=== PATIENT | female | born 1990 | race African-American/Black ===

== ENCOUNTER 2016-10-21 13:12 | Emergency (ER) | payer MEDICAID ==
[~2016-10-21] VITALS: Ht 170.2 cm; Wt 104.3 kg
[~2016-10-21 13:12] MED LIST: CYCLOBENZAPRINE10 MG ORAL; IBUPROFEN600 MG ORAL; KEFLEX500 MG ORAL; NITROFURANTOIN100 M2 ORAL
[2016-10-21 13:27] VITALS: BP 95/73
[2016-10-21 15:00] VITALS: BP 105/79
[2016-10-21 15:12] LABS: KETONES,URINE NEGATIVE (NEGATIVE); LEUKOCYTE ESTERASE ,URINE NEGATIVE (NEGATIVE); NITRITE,URINE NEGATIVE (NEGATIVE); PH,URINE 8 (4.5-8.0); PROTEIN,URINE NEGATIVE (NEGATIVE); UROBILINOGEN,URINE NORMAL MG/DL (0.0-1.0)
[2016-10-21 15:20] VITALS: BP 105/79
[2016-10-21 15:22] LABS: APPEARANCE,URINE CLEAR
--- NOTE | 2016-10-21 16:41 | Diagnostic Imaging Report ---
Indication: 11 weeks , vaginal bleeding, cramping Technique: Transabdominal and transvaginal images Comparison: 04/15/2016 Findings: Uterus is anteverted and retroflexed, measures 10.9 cm length by 7 cm AP. Within the endometrium, there is a gestational sac containing a pole with a crown-rump length of 13 mm, corresponding to a gestational age of 10 weeks. Estimated date of delivery is 05/18/2017. Note that estimated gestational age by dates is 14 weeks 6 days there is positive heart activity, heart rate 153 beats per minute. No myometrial abnormalities. No evidence of subchorionic hemorrhage. Yolk sac is demonstrated. Right ovary measures 2.4 cm in length. Right ovary measures 3.1 cm. Complex corpus luteum seen within the right ovary. No adnexal mass demonstrated. There is trace free cul-de-sac fluid. Impression: Positive for 10 week single live intrauterine , by crown-rump length measurement. No unusual features Trace free cul-de-sac fluid, most likely physiologic
--- NOTE | 2016-10-23 08:16 | Emergency Room Report ---
History of Present Illness General Chief Complaint: Abdominal Pain Source: Patient Present Illness HPI Patient presents with complaints of vaginal spotting she feels that she is likely 10-11 weeks Has some mild cramping in the lower abdomen as well Denies any dysuria frequency Patient denies any flank pain Denies any vomiting or diarrhea Cramping is 2/10 suprapubic region Patient has not had ultrasound the workup for this Allergies: Coded Allergies: No Known Allergies (Unverified , 04/08/15) Patient History Past Medical History: see triage record Pertinent Family History: none Last Menstrual Period: 06/25/16 Now: Yes : 3 Para: 1 Reviewed Nursing Documentation: PMH: Agreed, PSxH: Agreed Nursing Documentation-PMH Past Medical History: No Stated History Review of Systems All Other Systems: negative except mentioned in HPI Physical Exam Vital Signs Date Time Temp Pulse Resp B/P Pulse Ox O2 Delivery O2 Flow Rate FiO2 10/21/16 13:17 98.2 80 15 95/73 96 Room Air Sp02 EP Interpretation: reviewed, normal General Appearance: well appearing, no apparent distress Head: normocephalic, atraumatic Eyes: bilateral eye EOMI, bilateral eye PERRL ENT: hearing grossly normal, normal pharynx, TMs + canals normal, uvula midline Neck: full range of motion, supple, no meningismus, no bony tend Respiratory: lungs clear, normal breath sounds, no rhonchi, no respiratory distress, no retraction, no accessory muscle use Cardiovascular #1: normal peripheral pulses, regular rate, rhythm, no edema, no gallop, no JVD, no murmur Gastrointestinal: normal bowel sounds, non tender, soft, no mass, no organomegaly, non-distended, no guarding, no hernia, no pulsatile mass, no rebound Genitourinary: no CVA tenderness Musculoskeletal: normal inspection Neurologic: oriented x3, responsive, manager of allied health services III-XII nml as tested, motor strength/ tone normal, sensory intact Psychiatric: mood/affect normal Skin: normal color, no rash, warm/dry, palpation normal Lymphatic: normal inspection, no adenopathy Medical Decision Making Diagnostic Impression: Primary Impression: threatened miscarriage ER Course Multiple differentials considered, including but not limited to ectopic , threatened miscarriage, UTI Patient's beta Quant is elevated ultrasound reveals evidence of intrauterine And patient stable for close outpatient followup Labs Test 10/21/16 14:40 Urine Color Pale yellow Urine Appearance Clear Urine pH 8 (4.5-8.0) Urine Specific [place] 1.010 (1.005-1.035) Urine Protein Negative (NEGATIVE) Urine Glucose (UA) Negative (NEGATIVE) Urine Ketones Negative (NEGATIVE) Urine Occult Blood Negative (NEGATIVE) Urine Nitrite Negative (NEGATIVE) Urine Bilirubin Negative (NEGATIVE) Urine Urobilinogen Normal MG/DL (0.0-1.0) Urine Leukocyte Esterase Negative (NEGATIVE) Human Chorionic Gonadotropin, Quant 40607 mIU/mL CT/MRI/US Diagnostic Results CT/MRI/US Diagnostic Results : Impression Pelvic ultrasound:Impression: Positive for 10 week single live intrauterine , by crown-rump length measurement. No unusual features Trace free cul-de-sac fluid, most likely physiologic Last Vital Signs Date Time Temp Pulse Resp B/P Pulse Ox O2 Delivery O2 Flow Rate FiO2 10/21/16 15:20 98.2 76 16 105/79 98 Room Air Status: improved Disposition: HOME, SELF-CARE Condition: Improved Referrals: [facility] (PCP) Patient Instructions: Threatened Miscarriage, [id number] Additional Instructions: Patient is provided with the discharge instructions notified to follow up with primary doctor in the next 2-3 days otherwise return to the er with any worsening symptoms. Please note that this report is being documented using [employer] technology. This can lead to erroneous entry secondary to incorrect interpretation by the dictating instrument. JESSE LOPEZ D.O. Oct 23, 2016 08:16
== END 2016-10-21 15:20 | disposition home or self-care (01) ==
LOC: EMR 13:45
DX: O20.0 Threatened abortion (principal); Z3A.10 10 weeks gestation of pregnancy
CPT/HCPCS: 36415; 76801; 76830; 81003; 84702; 99284

== ENCOUNTER 2017-01-10 13:05 | Emergency (ER) | payer MEDICAID ==
[~2017-01-10] VITALS: Ht 170.2 cm; Wt 106.1 kg
[2017-01-10 13:41] VITALS: BP 103/73
[2017-01-10 14:04] LABS: BASOPHILS % (AUTO) 0.2 % (0.0-2.0); EOSINOPHILS % (AUTO) 0.5 % (0.0-3.0); LYMPHOCYTES % (AUTO) 22.1 % (20.0-45.0); MEAN CORPUSCULAR HEMOGLOBIN 30.3 PG (27.0-31.0); MEAN CORPUSCULAR HGB CONC 33.6 G/DL (32.0-36.0); MEAN CORPUSCULAR VOLUME 90 FL (80-99); MEAN PLATELET VOLUME 6.8 FL (6.5-10.1); MONOCYTES % (AUTO) 5.9 % (1.0-10.0); NEUTROPHILS % (AUTO) 71.3 % (45.0-75.0); PLATELET COUNT 258 K/UL (150-450); RED BLOOD COUNT 4.02 M/UL (4.20-5.40); RED CELL DISTRIBUTION WIDTH 12.1 % (11.6-14.8); WHITE BLOOD COUNT 8.9 K/UL (4.8-10.8)
[2017-01-10 14:13] LABS: APPEARANCE,URINE CLEAR; KETONES,URINE NEGATIVE (NEGATIVE); LEUKOCYTE ESTERASE ,URINE 1+ (NEGATIVE); NITRITE,URINE NEGATIVE (NEGATIVE); PH,URINE 6 (4.5-8.0); PROTEIN,URINE NEGATIVE (NEGATIVE); UROBILINOGEN,URINE NORMAL MG/DL (0.0-1.0)
[2017-01-10 14:31] LABS: BACTERIA,URINE FEW /HPF; MUCUS,URINE FEW /LPF (NONE/OCC); RBC,URINE 0-2 /HPF (0 - 2); SQUAMOUS EPITHELIAL CELL,UR FEW /LPF (NONE/OCC)
[2017-01-10 14:37] LABS: ALANINE AMINOTRANSFERASE 18 U/L (3-33); ALBUMIN/GLOBULIN RATIO 1.3 (1.0-2.7); ANION GAP 13 (5-15); ASPARTATE AMINO TRANSFERASE 14 U/L (5-40); CALCIUM 9.2 mg/dL (8.6-10.2); CARBON DIOXIDE 21 mEQ/L (20-30); CHLORIDE 103 mEQ/L (98-107); CREATININE 0.6 mg/dL (0.5-0.9); GLOMERULAR FILTRATION RATE > 60 mL/min (>60); HEMOLYSIS 3; LIPASE 19 U/L (< 60); POTASSIUM 3.6 mEQ/L (3.4-4.9); SODIUM 137 mEQ/L (135-145); TOTAL PROTEIN 6.5 g/dL (6.6-8.7)
[2017-01-10 15:30] VITALS: BP 103/73
--- NOTE | 2017-01-10 21:55 | Emergency Room Report ---
History of Present Illness General Chief Complaint: Syncope Source: Patient Present Illness HPI The patient is a 26-year-old female at 22 weeks gestation presenting for feelings of weakness for the past 2 weeks. She is unsure if she has fainted. She denies any abdominal pain or vaginal bleeding. She denies headache or dizziness. She denies other symptoms including nausea, vomiting, fever, chills , shortness of breath, chest pain Allergies: Coded Allergies: No Known Allergies (Unverified , 04/08/15) Patient History Past Medical History: see triage record Pertinent Family History: none Last Menstrual Period: 08/08/16 Now: Yes : 3 Para: 2 Reviewed Nursing Documentation: PMH: Agreed, PSxH: Agreed Nursing Documentation-PMH Past Medical History: No Stated History Review of Systems All Other Systems: negative except mentioned in HPI Physical Exam Vital Signs Date Time Temp Pulse Resp B/P Pulse Ox O2 Delivery O2 Flow Rate FiO2 01/10/17 13:09 97.9 90 17 103/73 98 Room Air Sp02 EP Interpretation: reviewed, normal General Appearance: no apparent distress, alert, GCS 15, non-toxic Head: normocephalic, atraumatic Eyes: bilateral eye PERRL, bilateral eye normal inspection ENT: hearing grossly normal, normal pharynx, no angioedema, normal voice Neck: full range of motion, supple/symm/no masses Respiratory: chest non-tender, lungs clear, normal breath sounds, speaking full sentences Cardiovascular #1: regular rate, rhythm, no edema Musculoskeletal: back normal, gait/station normal, normal range of motion, non- tender Neurologic: alert, oriented x3, responsive, motor strength/tone normal, sensory intact, speech normal Psychiatric: judgement/insight normal, memory normal, mood/affect normal, no suicidal/homicidal ideation Skin: normal color, no rash, warm/dry, well hydrated Medical Decision Making PA Attestation Dr. Pardo is my supervising physician. Patient management was discussed with my supervising physician Diagnostic Impression: Primary Impression: Second trimester ER Course The patient is a 26-year-old female a 22 weeks gestation presenting for weakness Differential diagnoses considered include but not limited to anemia, dehydration , hyperemesis gravidarum, ectopic , threatened , among others Physical exam: Vitals are within normal limits. No apparent distress Abdomen is soft and nontender Skin is warm and dry. No pallor Blood work is unremarkable Mobile to sound is unremarkable. Viable noted The patient will be discharged home he needs to followup with OB as soon as possible. ER precautions given Laboratory Tests Test 01/10/17 13:35 White Blood Count 8.9 K/UL (4.8-10.8) Red Blood Count 4.02 M/UL (4.20-5.40) L Hemoglobin 12.2 G/DL (12.0-16.0) Hematocrit 36.3 % (37.0-47.0) L Mean Corpuscular Volume 90 FL (80-99) Mean Corpuscular Hemoglobin 30.3 PG (27.0-31.0) Mean Corpuscular Hemoglobin Concent 33.6 G/DL (32.0-36.0) Red Cell Distribution Width 12.1 % (11.6-14.8) Platelet Count 258 K/UL (150-450) Mean Platelet Volume 6.8 FL (6.5-10.1) Neutrophils (%) (Auto) 71.3 % (45.0-75.0) Lymphocytes (%) (Auto) 22.1 % (20.0-45.0) Monocytes (%) (Auto) 5.9 % (1.0-10.0) Eosinophils (%) (Auto) 0.5 % (0.0-3.0) Basophils (%) (Auto) 0.2 % (0.0-2.0) Prothrombin Time 10.0 SEC (9.30-11.50) Prothrombin Time INR 1.0 (0.9-1.1) PTT 28 SEC (23-33) Urine Color Yellow Urine Appearance Clear Urine pH 6 (4.5-8.0) Urine Specific [place] 1.025 (1.005-1.035) Urine Protein Negative (NEGATIVE) Urine Glucose (UA) Negative (NEGATIVE) Urine Ketones Negative (NEGATIVE) Urine Occult Blood Negative (NEGATIVE) Urine Nitrite Negative (NEGATIVE) Urine Bilirubin Negative (NEGATIVE) Urine Urobilinogen Normal MG/DL (0.0-1.0) Urine Leukocyte Esterase 1+ (NEGATIVE) H Urine RBC 0-2 /HPF (0 - 2) Urine WBC 2-4 /HPF (0 - 2) Urine Squamous Epithelial Cells Few /LPF (NONE/OCC) Urine Bacteria Few /HPF (NONE) Urine Mucus Few /LPF (NONE/OCC) H Sodium Level 137 mEQ/L (135-145) Potassium Level 3.6 mEQ/L (3.4-4.9) Chloride Level 103 mEQ/L (98-107) Carbon Dioxide Level 21 mEQ/L (20-30) Anion Gap 13 (5-15) Blood Urea Nitrogen 6 mg/dL (7-23) L Creatinine 0.6 mg/dL (0.5-0.9) Estimate Glomerular Filtration Rate > 60 mL/min (>60) Glucose Level 112 mg/dL (74-106) H Calcium Level 9.2 mg/dL (8.6-10.2) Total Bilirubin < 0.2 mg/dL (0.0-1.2) Aspartate Amino Transferase (AST) 14 U/L (5-40) Alanine Aminotransferase (ALT) 18 U/L (3-33) Alkaline Phosphatase 59 U/L (35-104) Total Protein 6.5 g/dL (6.6-8.7) L Albumin 3.7 g/dL (3.5-5.2) Globulin 2.8 g/dL Albumin/Globulin Ratio 1.3 (1.0-2.7) Lipase 19 U/L (< 60) Human Chorionic Gonadotropin, Quant 8267 mIU/mL Lab Results Impression Unremarkable EKG Diagnostic Results EP Interpretation: NSR, no acute findings Rate: normal - 74 Rhythm: NSR ST Segments: no acute changes ASA given to the pt in ED: No PA Scribe Text EKG was reviewed and read with my supervising physician. No acute ST segment changes are seen. Normal rate and rhythm. No acute changes. CT/MRI/US Diagnostic Results CT/MRI/US Diagnostic Results : Imaging Test Ordered: OB US Impression viable Last Vital Signs Date Time Temp Pulse Resp B/P Pulse Ox O2 Delivery O2 Flow Rate FiO2 01/10/17 15:30 97.9 90 17 103/73 98 Room Air Status: improved Disposition: HOME, SELF-CARE Condition: Improved Patient Instructions: Second Trimester of Additional Instructions: I discussed my findings with the patient. All questions and concerns have been answered. Treatment and medication compliance have been addressed. I advised the patient that they need to follow up with OB as soon as possible. Return to ED if symptoms worsen, new symptoms arise such as vaginal bleeding or cramping, or if needed for any reason. Patient verbalized understanding of discharge instructions. NATANAEL RODRIGUEZ Jan 10, 2017 21:55
--- NOTE | 2017-01-11 09:12 | Diagnostic Imaging Report ---
Indications: 26-year-old female with pain. Technique: Transabdominal real-time grayscale and duplex Doppler imaging of intrauterine was performed. Findings: Comparison: None. Single live intrauterine fetus is present, cephalic in presentation with spontaneous movement and regular cardiac activity are demonstrated, 152 beats per minute. Cervix is closed measuring 4.2 cm. Amniotic fluid appears grossly within normal limits. There is a posterior placenta with relationship to the cervix difficult to visualize without endovaginal technique questionably marginal. Evaluation of the anatomy is limited. Bladder, three-vessel cord, cord insertion are grossly unremarkable. Face, intracranial compartment, four-chamber heart, distal extremities and spine are suboptimally evaluated. Mean biparietal diameter 5.2 cm corresponding to 21 weeks 5 days. Mean head circumference 18.8 cm corresponding to 21 weeks one day. Mean abdominal circumference 16.9 cm corresponding to 21 weeks 6 days. Mean femur length 3.6 cm corresponding to 21 weeks 3 days. Estimated weight is 436 grams. Composite estimated gestational age by sonographic measurements is 21 weeks 4 days. This compares to an estimated gestational age of 21 weeks 5 days by LMP. Impression: Single live intrauterine , estimated gestational age 21 weeks 4 days by ultrasound versus 21 weeks 5 days by LMP. heart rate of 152 beats per minute. Limited evaluation of the anatomy and dedicated anatomy scan recommended for further evaluation. Suboptimal visualization of the distal extent of the posterior placenta without endovaginal technique. Questionable marginal placenta and followup recommended for further evaluation.
--- NOTE | 2017-01-11 16:59 | Cardiology Report ---
APPROVED REPORT EKG Measurement Heart [id number] Normal sinus rhythm Normal ECG
== END 2017-01-10 15:30 | disposition home or self-care (01) ==
LOC: EMR 14:05
DX: O26.892 Other specified pregnancy related conditions, second trimester (principal); Z3A.22 22 weeks gestation of pregnancy; R53.1 Weakness
CPT/HCPCS: 36415; 76805; 80053; 81003; 83690; 84702; 85025; 85610; 85730; 86850; 86900; 86901; 93005; 99284

== ENCOUNTER 2017-09-06 09:45 | Emergency (ER) | payer MEDICAID ==
[~2017-09-06] VITALS: Ht 170.2 cm; Wt 108.0 kg
[2017-09-06] MEDS ORDERED: NKM (10:00)
[2017-09-06] MEDS ORDERED: Azithromycin 250mg tab ORAL ONE (10:30)
[2017-09-06] MEDS ORDERED: Dexamethasone 4mg/ml vial IM ONE (10:30)
--- NOTE | 2017-09-06 11:16 | Emergency Room Report ---
History of Present Illness General Chief Complaint: Sore Throat Source: Patient Present Illness HPI Patient with 2-3 days of increased sore throat. Pain with swallowing. Her tonsils feel swollen. She has no trouble breathing. Feverish, not documented. Never with this amount of pain with sore throats in the past. No productive cough or chest pain. Not feel dizzy with standing. Some change in her voice, but no jaw pain or problems opening her mouth. Pain rated 7/10, burning. Feels some swelling both sides. Her periods are irregular. She states she is not . No dysuria. She has the implant and this makes her periods irregular. No abdominal pain, nausea. Feels tired. No rashes or joint pain. No neck stiffness. Allergies: Coded Allergies: No Known Allergies (Unverified , 04/08/15) Patient History Past Medical History: see triage record Social History: Denies: smoking Social History Narrative working Last Menstrual Period: 07/25/17 : 3 Para: 2 Reviewed Nursing Documentation: PMH: Agreed; PSxH: Agreed Nursing Documentation-PMH Past Medical History: No Stated History Review of Systems All Other Systems: negative except mentioned in HPI Physical Exam Vital Signs Date Time Temp Pulse Resp B/P (MAP) Pulse Ox O2 Delivery O2 Flow Rate FiO2 09/06/17 09:56 99.3 97 17 125/81 97 Room Air 99.3 Sp02 EP Interpretation: reviewed, normal General Appearance: well appearing, no apparent distress, GCS 15, non-toxic Head: normocephalic, atraumatic ENT: hearing grossly normal, no angioedema, normal voice, uvula midline, moist mucus membranes, tonsillar swelling, pharyngeal erythema, tonsillar exudate, other - No ACETALDEHYDE CONVERTER OPERATOR Neck: full range of motion, supple, no meningismus Respiratory: chest non-tender, lungs clear, normal breath sounds, no respiratory distress, speaking full sentences Cardiovascular #1: regular rate, rhythm Cardiovascular #2: 2+ radial (R) Gastrointestinal: normal inspection Musculoskeletal: no calf tenderness Neurologic: alert, normal gait, grossly normal Psychiatric: mood/affect normal Skin: no rash Medical Decision Making Diagnostic Impression: Primary Impression: Sore throat ER Course Patient with sore throat for 2-3 days. DDx: viral, strep, ACETALDEHYDE CONVERTER OPERATOR, retropharyngeal abscess amongst others. Patient without airway compromise and tolerating PO. Exam c/w strep. There is no evidence of ACETALDEHYDE CONVERTER OPERATOR or retropharyngeal abscess at this time. Dexamethasone and antibiotics indicated. Patient slightly improved with treatment. Discussed expected course and need for return if worsening. Patient stable for outpatient observation and treatment. Last Vital Signs Date Time Temp Pulse Resp B/P (MAP) Pulse Ox O2 Delivery O2 Flow Rate FiO2 09/06/17 11:24 99.0 81 17 126/77 98 Room Air 99.0 Status: improved Disposition: HOME, SELF-CARE Condition: Improved Scripts Tramadol Hcl* (ULTRAM*) 50 Mg Tablet 50 MG ORAL Q6H PRN for For Pain, #10 TAB 0 Refills Prov: Salinas Goins M.D. 09/06/17 Ibuprofen* (MOTRIN*) 600 Mg Tablet 600 MG ORAL Q6H PRN for For Pain, #20 TAB Prov: Salinas Goins M.D. 09/06/17 Azithromycin* (ZITHROMAX*) 250 Mg Tablet 250 MG ORAL DAILY, #4 TAB 0 Refills Prov: Salinas Goins M.D. 09/06/17 Referrals: [facility],REFERRING (PCP) Salinas Goins M.D. Sep 06, 2017 11:16
[2017-09-06] MEDS ORDERED: IBUPROFEN600 MG ORAL (11:18)
[2017-09-06] MEDS ORDERED: TRAMADOL HCL50 MG ORAL (11:18)
[2017-09-06] MEDS ORDERED: AZITHROMYCIN250 MG ORAL (11:18)
[2017-09-06 11:24] VITALS: BP_SYST 125; BP_SYST 126; BP_DIAS 77; BP_DIAS 81
== END 2017-09-06 11:24 | disposition home or self-care (01) ==
LOC: EMR 10:36
DX: R07.0 Pain in throat (principal)
CPT/HCPCS: 96372; 99284; J1100; Q0144

== ENCOUNTER 2017-11-02 12:43 | Emergency (ER) | payer MEDICAID ==
[~2017-11-02] VITALS: Ht 170.2 cm; Wt 111.1 kg
[~2017-11-02 12:43] MED LIST changes: +AZITHROMYCIN250 MG ORAL; +NKM; +TRAMADOL HCL50 MG ORAL
[2017-11-02 13:15] VITALS: BP 111/72
[2017-11-02] MEDS ORDERED: Tetanus/Diptheria/Pertussis Vaccine 0.5ml Syr IM ONE (14:00)
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
[2017-11-02] MEDS ORDERED: MEDERMA20 GM TP (14:06)
[2017-11-02] MEDS ORDERED: BACITRACIN-P28.35 GM TP (14:06)
[2017-11-02] MEDS ORDERED: AUGMENTIN 875-1 EAC1 ORAL (14:06)
[2017-11-02] MEDS ORDERED: Bacitracin Oint UD TOPIC ONE (14:15)
[2017-11-02 14:26] VITALS: BP 111/72
== END 2017-11-02 14:26 | disposition home or self-care (01) ==
LOC: EMR 13:49
DX: S61.052A Open bite of left thumb without damage to nail, initial encounter (principal); S00.81XA Abrasion of other part of head, initial encounter; S10.91XA Abrasion of unspecified part of neck, initial encounter; Y04.1XXA Assault by human bite, initial encounter; Y92.009 Unspecified place in unspecified non-institutional (private) residence as the place of occurrence of the external cause; Z23 Encounter for immunization; T14.8XXA Other injury of unspecified body region, initial encounter
CPT/HCPCS: 90471; 90715; 99284